=== PATIENT | male | born 1945 | race Caucasian/White ===

== ENCOUNTER 2017-09-09 08:03 | Day surgery (SDC) | payer MEDICARE, OTHER ==
[2017-09-09] VITALS (7 sets, daily range): BP systolic 91–115; BP diastolic 55–74; PULSE 72–88; RESP 18–20; TEMP 97.4–97.6; O2SAT 92–96
[~2017-09-09] VITALS: Ht 175.3 cm; Wt 56.4 kg
[~2017-09-09 08:03] MED LIST: ASPI325T PO; ATOR20TA42 PO; CLOP75 PO; DIGO.125 PO; METO25 PO
[2017-09-09] MEDS ORDERED: SODIUM CHLOR 0.9% 1000 ML IV SCH (08:30)
[2017-09-09] MEDS ORDERED: SODIUM CHLORIDE 2 ML FLUSH PRN IV FLUSH (08:30)
[2017-09-09] MEDS ORDERED: CARV3.12 PO (08:31)
[2017-09-09] MEDS ORDERED: ATOR20TA15 PO (08:31)
[2017-09-09] MEDS ORDERED: DIGO0.12 PO (08:31)
[2017-09-09] MEDS ORDERED: MULT1TAB46 PO (08:31)
[2017-09-09] MEDS ORDERED: ASPI81CH37 CHEW (08:31)
[2017-09-09] MEDS ORDERED: POTA-163 PO (08:31)
[2017-09-09] MEDS ORDERED: ALBU0.63 NEB (08:31)
[2017-09-09] MEDS ORDERED: LEVO150T7 PO (08:31)
[2017-09-09] MEDS ORDERED: NIAC500C PO (08:31)
[2017-09-09] MEDS ORDERED: FURO20TA PO (08:31)
[2017-09-09] MEDS ORDERED: VENTAER INH (08:31)
[2017-09-09 08:54] LABS: AUTOMATED NEUTROPHIL # 4.9 TH/MM3 (1.8-7.7); BASOPHIL # 0.1 TH/MM3 (0-0.2); BASOPHIL % 0.8 % (0.0-2.0); EOSINOPHIL # 0.3 TH/MM3 (0-0.4); EOSINOPHIL % 4.7 % (0.0-4.0); HEMATOCRIT 42.7 % (39.0-51.0); HEMO FLAGS DIFF FINAL; LYMPHOCYTE # 1.4 TH/MM3 (1.0-4.8); MEAN CELL VOLUME 87.8 FL (80.0-100.0); MEAN CORPUSCULAR HEMOGLOBIN 29.7 PG (27.0-34.0); MEAN CORPUSCULAR HGB CONC 33.9 % (32.0-36.0); MONO % 9.3 % (0.0-8.0); NEUT % 66.2 % (16.0-70.0); PLATELET COUNT 384 TH/MM3 (150-450); RED BLOOD COUNT 4.86 MIL/MM3 (4.50-5.90); RED CELL DISTRIBUTION WIDTH 14.4 % (11.6-17.2); WHITE BLOOD COUNT 7.4 TH/MM3 (4.0-11.0)
[2017-09-09] MEDS ORDERED: SODIUM CHLORIDE 2 ML FLUSH BID IV FLUSH SCH (09:00)
[2017-09-09 09:07] LABS: APTT (PATIENT) 29.5 SEC (24.3-30.1); PROTHROMBIN TIME - PATIENT 11.6 SEC (9.8-11.6)
[2017-09-09] MEDS ORDERED: MIDAZOLAM HCL 2 MG/2 ML VIAL ONE (09:30)
[2017-09-09] MEDS ORDERED: LIDOCAINE HCL 1% 20 ML VIAL ONE (09:37)
--- NOTE | 2017-09-09 10:35 | PD.RAD ---
Post CT Procedure Prog Note Pre Procedure Diagnosis: (1) Emphysema lung (2) Lung nodule Post Procedure Diagnosis: (1) Lung nodule (2) Emphysema lung Procedure Date: Sep 09, 2017 Supervising Radiologist: Harpreet Gonzalez Estimated blood loss: minimal Anesthesia: Conscious Sedation Plan of Activity Patient to Unit: ROPU Patient Condition: Good See PACS Report for procedural detail/treatment Biopsy Imaging Guidance: CT Side: Right Biopsy Procedure: Lung Site: right upper lobe nodule Specimen: Core Biopsy Findings: 4 20g cores Plan to [facility] for monitoring then discharge Harpreet Gonzalez MD Sep 09, 2017 10:35
[2017-09-09] MEDS ORDERED: oxyCODONE/ACETAMINOPHEN 5 MG/325 MG TAB PO PRN (10:45)
--- NOTE | 2017-09-09 11:56 | RADRPT ---
EXAM DATE/TIME: 09/09/2017 11:31 [facility] COMPARISON: CT NEEDLE BIOPSY LUNG, RIGHT, September 09, 2017, 10:05. INDICATIONS : Evaluate for pneumothorax MEDICAL HISTORY : Cardiovascular disease. Carcinoma, lung. SURGICAL HISTORY : CABG. Pacemaker. ENCOUNTER: Initial ACUITY: 1 day PAIN SCORE: 0/10 LOCATION: chest FINDINGS: Median sternotomy wires and dual-lead AICD device in place. No significant pneumothorax status post r ight lung mass biopsy. The biopsied mass in the anterior right upper lobe is not well-demonstrated. R emainder of the exam is unchanged. CONCLUSION: 1. No significant pneumothorax status post right lung mass biopsy. Deon Lorenzo MD on September 09, 2017 at 11:51 Board Certified Radiologist. This report was verified electronically.
--- NOTE | 2017-09-09 13:23 | RADRPT ---
EXAM DATE/TIME: 09/09/2017 10:05 [facility] COMPARISON: CHEST EXPIRATION ONLY, September 09, 2017, 11:31. INDICATIONS : Right upper lobe nodule. SEDATION TIME: 30 minutes BIOPSY SITE: Right MEDICATION(S): 1.) 2 mg midazolam (Versed) IV 2.) 100 mcg fentanyl (Sublimaze) IV DEVICE(S): 1.) 20 gauge Temno core biopsy needle MEDICAL HISTORY : Cardiovascular disease. SURGICAL HISTORY : Pacemaker. ENCOUNTER: Initial ACUITY: 1 day PAIN SCORE: 0/10 LOCATION: Right chest A total of four core specimen(s) were obtained and sent to the laboratory for pathologic evaluation. PROCEDURE: 1. CT guided lung biopsy. 2. Conscious sedation with continuous EKG and oximetry monitoring. 3. EKG and oximetry remained stable throughout the procedure. Prior to the procedure informed consent was obtained. The patient's prior examinations were reviewed. Using automated exposure control and adjustment of the mA and/or kV according to patient size, radia tion dose was kept as low as reasonably achievable to obtain optimal diagnostic quality images. DICO M format image data is available electronically for review and comparison. The site was prepped in a sterile fashion. Full sterile technique was used, including cap, mask, yanique rile gloves and gown and a large sterile sheet. Hand hygiene and 2% chlorhexidine and/or betadine/al cohol prep was utilized per protocol for cutaneous antisepsis. The skin and subcutaneous tissues wer e infiltrated with local anesthetic solution. With CT guidance the right upper lobe lung nodule was localized. Biopsy was performed using the presc ribed needle as above. Adequate hemostasis was obtained with compression at the puncture site. Follow-up CT scan reveals no pneumothorax. Conscious sedation was performed with the prescribed dosages and duration as above in the presence of an independent trained radiology nurse to assist in the monitoring of the patient. EKG and oximetry remained stable throughout the procedure. The patient tolerated the procedure well and there were no complications. The patient was sent to Radiology Outpatient Unit in stable condition. CONCLUSION: Uncomplicated CT guided biopsy of the right upper lobe lung nodule. Harpreet Gonzalez MD on September 09, 2017 at 13:19 Board Certified Radiologist. This report was verified electronically.
--- NOTE | 2017-09-09 13:35 | RADRPT ---
EXAM DATE/TIME: 09/09/2017 13:21 [facility] COMPARISON: CT NEEDLE BIOPSY LUNG, RIGHT, September 09, 2017, 10:05. CHEST EXPIRATION ONLY, September 09, 2017, 11:3 1. INDICATIONS : Evaluate for pneumothorax. MEDICAL HISTORY : Cardiovascular disease. Carcinoma, lung. SURGICAL HISTORY : CABG. Pacemaker. ENCOUNTER: Subsequent ACUITY: 1 day PAIN SCORE: 0/10 LOCATION: Bilateral chest FINDINGS: Patient is status post a right lung biopsy. There is no pneumothorax. The lungs are well-aerated bila terally. There are no pleural effusions. Chronic interstitial changes are noted bilaterally. There is a pacemaker on the left chest. The heart size is within normal limits. CONCLUSION: No evidence of pneumothorax. Diego Begum MD on September 09, 2017 at 13:33 Board Certified Radiologist. This report was verified electronically.
== END 2017-09-09 14:25 | disposition home or self-care (01) ==
LOC: HRAD 08:03 → HRIP 08:04 → HRAD 14:25
PROVIDERS: ATTEND Internal Medicine Critical Care Medicine
DX: C34.11 Malignant neoplasm of upper lobe, right bronchus or lung (principal); J43.9 Emphysema, unspecified; I50.9 Heart failure, unspecified; I25.10 Atherosclerotic heart disease of native coronary artery without angina pectoris; J44.9 Chronic obstructive pulmonary disease, unspecified; Z95.0 Presence of cardiac pacemaker; Z95.1 Presence of aortocoronary bypass graft
CPT/HCPCS: 32405; 71010; 77012; 85025; 85610; 85730; 88305; 88341; 88342; J2250; J3010